=== PATIENT | female | born 1995 | race Caucasian/White ===

== ENCOUNTER 2020-09-08 07:00 | Emergency (ER) | payer BC ==
[~2020-09-08] VITALS: Ht 167.6 cm; Wt 54.7 kg
--- NOTE | 2020-09-08 07:16 | NUR ---
PT IS A 25F WHO SLIPPED ON ICE THIS MORNING HITTING HER HEAD ON THE GROUND. NO LOC, SHE HAS A 1 INCH LACERATION ABOVE HER LEFT EYEBROW AND SWELLING AROUND THE ORBIT WITH ABRASIONS. SHE HAS A FRIEND WITH HER AT BEDSIDE. CALL LIGHT WITHIN REACH, WITH CYCLING VITALS.
[2020-09-08] MEDS ORDERED: L.E.T SOLUTION TP ONE ×2 (07:20→07:30)
[2020-09-08] MEDS ORDERED: LIDOCAINE-MPF 1%, 5ML ONE (07:29)
[2020-09-08] MEDS ORDERED: LIDOCAINE-MPF 1%, 5ML INFIL ONE (07:30)
--- NOTE | 2020-09-08 07:34 | NUR ---
PT TO CT VIA [facility]
[2020-09-08 07:49] VITALS: BP 123/75
--- NOTE | 2020-09-08 07:49 | NUR ---
PT BACK FROM CT
[2020-09-08] MEDS ORDERED: NEOSPORIN OINT. PKT 1 PACKET ONE (08:39)
--- NOTE | 2020-09-08 08:48 | NUR ---
PT REFUSED BACITRACIN/CLEANING ON LEG ABRASION AT 1845 HOURS
== END 2020-09-08 09:08 | disposition home or self-care (01) ==
LOC: ED 08:57
DX: S06.0X0A Concussion without loss of consciousness, initial encounter (principal); S01.112A Laceration without foreign body of left eyelid and periocular area, initial encounter; S70.311A Abrasion, right thigh, initial encounter; W01.0XXA Fall on same level from slipping, tripping and stumbling without subsequent striking against object, initial encounter; Y93.89 Activity, other specified; Y92.89 Other specified places as the place of occurrence of the external cause; Y99.8 Other external cause status
CPT/HCPCS: 12011; 12051; 70486; 99284